=== PATIENT | male | born 1980 | race Two or more races ===

== ENCOUNTER 2020-03-09 01:37 | Emergency (ER) | payer SELFPAY ==
[~2020-03-09] VITALS: Ht 175.3 cm; Wt 143.2 kg
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
[2020-03-09] MEDS ORDERED: HYDR-3164 PO (02:46)
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
[2020-03-09 03:15] VITALS: BP 119/63
[2020-03-09] MEDS ORDERED: HYDROcodone/APAP 7.5/325MG 1 TAB TABLET PO ONE (03:30)
== END 2020-03-09 03:27 | disposition home or self-care (01) ==
LOC: ER 01:37
DX: S00.83XA Contusion of other part of head, initial encounter (principal); R42 Dizziness and giddiness; Y08.89XA Assault by other specified means, initial encounter; Y93.89 Activity, other specified; Y92.89 Other specified places as the place of occurrence of the external cause; Y99.8 Other external cause status
CPT/HCPCS: 70450; 70486; 99285-25

== ENCOUNTER 2021-02-16 05:52 | Emergency (ER) | payer OTHER ==
[~2021-02-16] VITALS: Ht 175.3 cm; Wt 125.0 kg
[~2021-02-16 05:52] MED LIST: HYDR-3164 PO
[2021-02-16] MEDS ORDERED: MORPHINE SULFATE 4 MG/ML VIAL. IV ONE (06:15)
[2021-02-16] MEDS ORDERED: ONDANSETRON PF 4 MG/2 ML VIAL. IVP ONE (06:15)
[2021-02-16] MEDS ORDERED: IV NORMAL SALINE 1000ML BAG 1,000 ML IV ONE (06:15)
--- NOTE | 2021-02-16 06:15 | ED.ADGEN ---
Past Medical History Past Medical History: No Pertinent History Past Surgical History: No Surgical History Smoking Status: Never Smoker Alcohol Use: None General Adult EDM: Chief Complaint: FLANK PAIN HPI: HPI: Patient is a 41-year-old male who arrives ambulatory to the emergency department complaint of a 2-hour history of right flank pain. Patient reports his pain woke him from sleep. Patient describes his pain is radiating from his right flank down to the right side of his abdomen and groin. Patient states despite the symptoms he denies any abdominal pain otherwise. He further denies any dysuria or history of fever. Additionally denies any history of trauma. He is awake, alert and uncomfortable appearing. Review of Systems: Review of Systems: Constitutional: Denies fever or chills. [] Eyes: Denies change in visual acuity. [] HENT: Denies nasal congestion or sore throat. [] Respiratory: Denies cough or shortness of breath. [] Cardiovascular: Denies chest pain or edema. [] GI: Reports abdominal pain, nausea, vomiting, bloody stools or diarrhea. [] : Reports right flank pain. Denies dysuria. [] Musculoskeletal: Denies back pain or joint pain. [] Integument: Denies rash. [] Neurologic: Denies headache, focal weakness or sensory changes. [] Endocrine: Denies polyuria or polydipsia. [] Lymphatic: Denies swollen glands. [] Psychiatric: Denies depression or anxiety. [] Current Medications: Current Medications Medications (Trade) Dose Ordered Sig/[facility] Start Time Stop Time Status Last Admin Dose Admin Ketorolac Tromethamine (Toradol 30mg Vial) 30 mg 1X ONCE 02/16/21 06:30 02/16/21 06:32 DC 02/16/21 06:37 30 MG Morphine Sulfate (Morphine Sulfate) 4 mg 1X ONCE 02/16/21 06:15 02/16/21 06:16 DC 02/16/21 06:17 4 MG Ondansetron HCl (Zofran) 4 mg 1X ONCE 02/16/21 06:15 02/16/21 06:16 DC 02/16/21 06:16 4 MG Sodium Chloride 1,000 ml @ 30 mls/hr 1X ONCE 02/16/21 06:15 02/17/21 15:34 02/16/21 06:16 30 MLS/HR Allergies: Allergies: Allergies Coded Allergies Type Severity Reaction Last Updated Verified No Known Drug Allergies 03/09/20 No Physical Exam: PE: Constitutional: Well developed, well nourished, no acute distress, non-toxic appearance. [] HENT: Normocephalic, atraumatic, bilateral external ears normal, oropharynx moist, no oral exudates, nose normal. [] Eyes: PERRLA, EOMI, conjunctiva normal, no discharge. [] Neck: Normal range of motion, no tenderness, supple, no stridor. [] Cardiovascular:Heart rate regular rhythm, no murmur [] Lungs & Thorax: Bilateral breath sounds clear to auscultation [] Abdomen: Bowel sounds normal, soft, no tenderness, no masses, no pulsatile masses. [] Skin: Warm, dry, no erythema, no rash. [] Back: Patient has right-sided CVA tenderness. [] Extremities: No tenderness, no cyanosis, no clubbing, ROM intact, no edema. [] Neurologic: Alert and oriented X 3, normal motor function, normal sensory function, no focal deficits noted. [] Psychologic: Affect normal, judgement normal, mood normal. [] Current Patient Data: Labs: Laboratory Tests Test 02/16/21 06:00 02/16/21 06:04 Urine Collection Type Unknown Urine Color Yellow Urine Clarity Clear Urine pH 5.5 (<5.0-8.0) Urine Specific [place] 1.020 (1.000-1.030) Urine Protein Negative mg/dL (NEG-TRACE) Urine Glucose (UA) Negative mg/dL (NEG) Urine Ketones (Stick) Negative mg/dL (NEG) Urine Blood Large (NEG) Urine Nitrite Negative (NEG) Urine Bilirubin Negative (NEG) Urine Urobilinogen Dipstick 0.2 mg/dL (0.2 mg/dL) Urine Leukocyte Esterase Negative (NEG) Urine RBC 20-40 /HPF (0-2) Urine WBC 1-4 /HPF (0-4) Urine Squamous Epithelial Cells Occ /LPF Urine Bacteria 0 /HPF (0-FEW) Urine Mucus Slight /LPF White Blood Count 8.9 x10^3/uL (4.0-11.0) Red Blood Count 4.97 x10^6/uL (4.30-5.70) Hemoglobin 14.3 g/dL (13.0-17.5) Hematocrit 41.8 % (39.0-53.0) Mean Corpuscular Volume 84 fL (79-100) Mean Corpuscular Hemoglobin 29 pg (25-35) Mean Corpuscular Hemoglobin Concent 34 g/dL (31-37) Red Cell Distribution Width 14.0 % (11.5-14.5) Platelet Count 219 x10^3/uL (140-400) Neutrophils (%) (Auto) 46 % (31-73) Lymphocytes (%) (Auto) 46 % (24-48) Monocytes (%) (Auto) 6 % (0-9) Eosinophils (%) (Auto) 2 % (0-3) Basophils (%) (Auto) 1 % (0-3) Neutrophils # (Auto) 4.1 x10^3/uL (1.8-7.7) Lymphocytes # (Auto) 4.1 x10^3/uL (1.0-4.8) Monocytes # (Auto) 0.5 x10^3/uL (0.0-1.1) Eosinophils # (Auto) 0.2 x10^3/uL (0.0-0.7) Basophils # (Auto) 0.0 x10^3/uL (0.0-0.2) Sodium Level 143 mmol/L (136-145) Potassium Level 3.9 mmol/L (3.5-5.1) Chloride Level 105 mmol/L (98-107) Carbon Dioxide Level 30 mmol/L (21-32) Anion Gap 8 (6-14) Blood Urea Nitrogen 16 mg/dL (8-26) Creatinine 1.0 mg/dL (0.7-1.3) Estimated GFR (Cockcroft-Gault) 83.2 Glucose Level 112 mg/dL (70-99) H Calcium Level 9.2 mg/dL (8.5-10.1) Laboratory Tests 02/16/21 06:04 Laboratory Tests 02/16/21 06:04 Vital Signs: Vital Signs Date Time Temp Pulse Resp B/P (MAP) Pulse Ox O2 Delivery O2 Flow Rate FiO2 02/16/21 06:37 0 100 02/16/21 06:19 69 158/89 (112) Room Air 02/16/21 05:58 98.0 98.0 EKG: EKG: [] Heart Score: C/O Chest Pain: No Risk Factors: Risk Factors: DM, Current or recent (<one month) smoker, HTN, HLP, family history of CAD, obesity. Risk Scores: Score 0 - 3: 2.5% MACE over next 6 weeks - Discharge Home Score 4 - 6: 20.3% MACE over next 6 weeks - Admit for Clinical Observation Score 7 - 10: 72.7% MACE over next 6 weeks - Early Invasive Strategies Radiology/Procedures: Radiology/Procedures: [] Impression: [facility] [address] [place] [address] IMAGING REPORT Signed PATIENT: JOSE MANUEL HERNANDEZ ACCOUNT: [id number] : 1980 LOCATION: ER AGE: 41 SEX: M EXAM STATUS: REG ER ORD. PHYSICIAN: SHARRI KITCHEN DO REASON: Right-sided flank pain PROCEDURE: CT ABDOMEN PELVIS WO CONTRAST EXAM: CT Abdomen and Pelvis without IV contrast CLINICAL HISTORY: Right-sided flank pain COMPARISON: none TECHNIQUE: Helical CT of the abdomen and pelvis without intravenous contrast. Axial, coronal and sagittal reformatted images were generated. PQRS compliance statement - One or more of the following individualized dose reduction techniques were utilized for this study: 1. Automated exposure control 2. Adjustment of the mA and/or kV according to patient size 3. Use of iterative reconstruction technique FINDINGS: Lack of intravenous contrast limits evaluation of solid organs, vasculature, and lymph nodes. 4 mm middle lobe lung nodule (image 9) is seen. No focal liver lesion. Gallbladder is normal. No biliary ductal dilatation. Spleen is unremarkable. Adrenal glands are normal. Pancreas is unremarkable. No focal renal lesion. Trace infiltration about the right kidney and right ureter with trace hydroureter. A 5 mm calculus is seen at the right u reterovesicular junction. Bladder wall thickening. Appendix is normal. Moderate colonic stool content is seen. No small or large bowel dilatation. No bowel obstruction. No abdominal or pelvic lymphadenopathy. No abdominal or pelvic ascites. Bilateral L5 pars defects are seen. No spondylolisthesis. IMPRESSION: 1. A 5 mm calculus is seen at the right ureterovesicular junction. Trace right hydroureter. Associated infiltration about the right ureter and bladder may be reactive or seen with ascending infection and cystitis and can be correlated with urinalysis. 2. Moderate colonic stool content. No bowel obstruction. 3. 4 mm middle lobe lung nodule is seen. If patient is considered to be at high risk, such as with history of smoking, then CT follow-up in about 12 months can be considered. Electronically signed by: Jack Van MD (02/16/2021 7:15 AM) [facility] DICTATED and SIGNED BY: JACK VAN MD DATE: 02/16/21 [id number] Course & Med Decision Making: Course & Med Decision Making Pertinent Labs and Imaging studies reviewed. (See chart for details) The patient is awake, alert and in no acute distress. Patient does report that his pain has been controlled in the emergency department. Patient does have a 5 mm stone which is at the right UVJ. I have advised the patient to return to the emergency department should he have any continued pain or develop any new fevers. He is otherwise been instructed to follow-up with a primary care physician of his choice. I have also spoken with him in great detail about the pulmonary nodule identified on CT. I advised that he follow-up with his primary care physician for monitoring of this as this could be malignant although the likelihood of this is very small. The patient verbalizes understanding and has agreed to do so. He is nontoxic-appearing and stable for discharge peer [] Justin Disclaimer: Justin Disclaimer: This electronic medical record was generated, in whole or in part, using a voice recognition dictation system. Departure Departure Impression: Primary Impression: Ureterolithiasis Additional Impression: Pulmonary nodule Disposition: 01 HOME / SELF CARE / HOMELESS Condition: IMPROVED Referrals: NO PCP (PCP) Patient Instructions: Kidney Stones, Pulmonary Nodule Additional Instructions: Follow-up with your primary care physician with respect to the pulmonary nodule identified on CT imaging for follow-up. Scripts Oxycodone HCl/Acetaminophen (Percocet 5-325 mg Tablet) 1 Each Tablet 1 TAB PO QID MDD 4 TABLETS for 3 Days, #12 TAB 0 Refills Prov: SHARRI KITCHEN DO 02/16/21 Tamsulosin Hcl (FLOMAX) 0.4 Mg Cap.er.24h 1 CAP PO DAILY for 10 Days, #10 CAP 0 Refills Prov: SHARRI KITCHEN DO 02/16/21 Problem Qualifiers SHARRI KITCHEN DO Feb 16, 2021 06:15
[2021-02-16 06:19] LABS: BASO % 1 % (0-3); EOS # 0.2 x10^3/uL (0.0-0.7); EOS % 2 % (0-3); HEMATOCRIT 41.8 % (39.0-53.0); HEMOGLOBIN 14.3 g/dL (13.0-17.5); LYMPH # 4.1 x10^3/uL (1.0-4.8); LYMPH % 46 % (24-48); MEAN CORPUSCULAR HEMOGLOBIN 29 pg (25-35); MEAN CORPUSCULAR HGB CONC 34 g/dL (31-37); MEAN CORPUSCULAR VOLUME 84 fL (79-100); MONO # 0.5 x10^3/uL (0.0-1.1); MONO % 6 % (0-9); NEUT # 4.1 x10^3/uL (1.8-7.7); NEUT % 46 % (31-73); PLATELET COUNT 219 x10^3/uL (140-400); RED BLOOD COUNT 4.97 x10^6/uL (4.30-5.70); WHITE BLOOD COUNT 8.9 x10^3/uL (4.0-11.0)
[2021-02-16 06:27] LABS: CALCIUM 9.2 mg/dL (8.5-10.1); GFR 83.2; POTASSIUM 3.9 mmol/L (3.5-5.1)
[2021-02-16] MEDS ORDERED: KETOROLAC 30 MG/ML VIAL. IVP ONE (06:30)
[2021-02-16 06:32] LABS: BILIRUBIN,URINE NEGATIVE (NEG); CLARITY,URINE CLEAR; COLOR,URINE YELLOW; NITRITE,URINE NEGATIVE (NEG); PH,URINE 5.5 (<5.0-8.0); PROTEIN,URINE NEGATIVE (NEG-TRACE); UROBILINOGEN,URINE 0.2 mg/dL (0.2 mg/dL)
[2021-02-16 06:44] LABS: BACTERIA,URINE 0 /HPF (0-FEW); RBC,URINE 20-40 /HPF (0-2)
--- NOTE | 2021-02-16 07:17 | RAD ---
EXAM: CT Abdomen and Pelvis without IV contrast CLINICAL HISTORY: Right-sided flank pain COMPARISON: none TECHNIQUE: Helical CT of the abdomen and pelvis without intravenous contrast. Axial, coronal and sagi ttal reformatted images were generated. PQRS compliance statement - One or more of the following individualized dose reduction techniques wer e utilized for this study: 1. Automated exposure control 2. Adjustment of the mA and/or kV according to patient size 3. Use of iterative reconstruction technique FINDINGS: Lack of intravenous contrast limits evaluation of solid organs, vasculature, and lymph nodes. 4 mm middle lobe lung nodule (image 9) is seen. No focal liver lesion. Gallbladder is normal. No biliary ductal dilatation. Spleen is unremarkable. A drenal glands are normal. Pancreas is unremarkable. No focal renal lesion. Trace infiltration about the right kidney and right ureter with trace hydroure ter. A 5 mm calculus is seen at the right ureterovesicular junction. Bladder wall thickening. Appendi x is normal. Moderate colonic stool content is seen. No small or large bowel dilatation. No bowel obs truction. No abdominal or pelvic lymphadenopathy. No abdominal or pelvic ascites. Bilateral L5 pars defects are seen. No spondylolisthesis. IMPRESSION: 1. A 5 mm calculus is seen at the right ureterovesicular junction. Trace right hydroureter. Associat ed infiltration about the right ureter and bladder may be reactive or seen with ascending infection a nd cystitis and can be correlated with urinalysis. 2. Moderate colonic stool content. No bowel obstruction. 3. 4 mm middle lobe lung nodule is seen. If patient is considered to be at high risk, such as with h istory of smoking, then CT follow-up in about 12 months can be considered. Electronically signed by: Jack Van MD (02/16/2021 7:15 AM) [facility]
[2021-02-16 07:25] VITALS: BP 125/79
[2021-02-16] MEDS ORDERED: TAMS0.4C97 PO (07:27)
[2021-02-16] MEDS ORDERED: OXYC-325 PO (07:27)
== END 2021-02-16 07:45 | disposition home or self-care (01) ==
LOC: ER 05:52
DX: N20.1 Calculus of ureter (principal); R91.1 Solitary pulmonary nodule
CPT/HCPCS: 36415; 74176; 80048; 81001; 85025; 96361; 96374; 96375; 99285; J1885; J2270; J2405; J7030